=== PATIENT | male | born 1970 | race Caucasian/White ===

== ENCOUNTER → 2018-10-16 | Outpatient (CLI) | payer OTHER ==
[~2018-10-16] MED LIST: CALCIUM COMPLETE PO; GLUC15006 PO; MULT-516 PO
== END | disposition home or self-care (01) ==
LOC: CFH 07:29
PROVIDERS: ATTEND Nurse Practitioner Family
DX: D17.9 Benign lipomatous neoplasm, unspecified (principal)
CPT/HCPCS: 76705